=== PATIENT | male | born 1945 | race Caucasian/White ===

== ENCOUNTER 2022-05-16 21:51 | Emergency (ER) | payer MEDICARE, BC ==
[2022-05-16] MEDS ORDERED: Sodium Chloride 0.9% 10 ML Syringe FLUSH PRN (22:19)
[2022-05-16 22:38] LABS: ANION GAP 12.5 mEq/L (7-13); CHLORIDE,CL 102 mmol/L (98-107); ESTIMATED GFR 68 mL/min (>=60); SODIUM,NA 139 mmol/L (136-145)
== END 2022-05-16 22:47 | disposition home or self-care (01) ==
LOC: DL.ED 21:51
DX: I47.1 Supraventricular tachycardia (principal)
CPT/HCPCS: 36415; 80053; 84484; 85025; 93005; 99285; J3490